=== PATIENT | male | born 1970 | race Caucasian/White ===

== ENCOUNTER 2019-04-08 | Emergency (ER) | payer SELFPAY ==
[2019-04-08] MEDS ORDERED: VOLTAREN1%GEL TOP (18:17)
[2019-04-08] MEDS ORDERED: CYCLOBENZAPR5 MG PO (18:19)
== END 2019-04-08 18:28 | disposition home or self-care (01) | DRG 556 ==
DX: M25.511 Pain in right shoulder (principal); M25.521 Pain in right elbow; M79.631 Pain in right forearm; W11.XXXA Fall on and from ladder, initial encounter; Y93.H2 Activity, gardening and landscaping; Y92.009 Unspecified place in unspecified non-institutional (private) residence as the place of occurrence of the external cause